=== PATIENT | female | born 1975 | race African-American/Black ===

== ENCOUNTER 2022-04-28 12:55 | Inpatient (IN) ==
[2022-04-28] MEDS ORDERED: ACETAMINOPHEN 500 MG TABLET PO STA (14:02)
[2022-04-28] MEDS ORDERED: SODIUM CHLORIDE 0.9% 1,000 ML IV STA (22:21)
[2022-04-28] MEDS ORDERED: ONDANSETRON 4 MG/2 ML VIAL IV STA (22:22)
[2022-04-28 23:44] LABS: Basophils % 0.1 % (0.0-0.8); Hematocrit 35.3 VOL% (35.7-47.0); Hemoglobin 11.4 GM/DL (12.0-16.0); Immature Granulocytes % 0.8 %; Immature Granulocytes Absolute 0.12 #; Lymphocytes # 0.8 10*3/uL (1.4-4.0); Lymphocytes % 5.2 % (21.3-54.2); Mean Corpuscular HGB Conc 32.3 GM/DL (32-36); Mean Corpuscular Volume 93.1 FL (87-102); Mean Platelet Volume 10.7 FL (9.6-12.0); Monocytes # 0.3 10*3/uL (0.11-0.8); Neutrophils % 91.9 % (38.7-73.9); Platelet Count 222 T/CUMM (130-400); Red Blood Count 3.79 MC/CUMM (3.8-5.5); Red Cell Distribution Width 12.8 % (9.3-17.3); White Blood Count 14.3 T/CUMM (4-12)
[2022-04-29 00:13] LABS: Alanine Aminotransferase 60 U/L (13-56); Albumin < 0.6 G/DL (3.4-5.0); Alkaline Phosphatase 51 U/L (45-117); Aspartate Amino Transferase 77 U/L (0-37); Bilirubin,Total < 0.39 MG/DL (0.20-1.00); Blood Urea Nitrogen 22 MG/DL (7-18); Calcium 7.7 MG/DL (8.5-10.1); Carbon Dioxide 28 MMOL/L (21-32); Chloride 99 MMOL/L (98-107); Glucose 94 MG/DL (74-106); Osmolality,Calculated 268.4 MOS/KG (273-304); Sodium 133 MMOL/L (136-145); Total Protein 5.5 G/DL (6.4-8.2)
[2022-04-29 00:36] LABS: Lymphocytes 7 % (20-55); Platelet Estimate Normal; Total Cells Counted 100
[2022-04-29] MEDS ORDERED: SODIUM CHLORIDE 0.9% 1,000 ML IV STA (00:51)
[2022-04-29] MEDS ORDERED: ACETAMINOPHEN 325 MG TABLET PO PRN (02:15)
[2022-04-29] MEDS ORDERED: cefTRIAXone 1,000 MG VIAL IV SCH (02:30)
[2022-04-29] MEDS ORDERED: cefTRIAXone 1,000 MG in SYRINGE 1 EACH IV SCH (02:30)
[2022-04-29] MEDS ORDERED: OSELTAMIVIR 30 MG CAPSULE PO SCH (02:30)
[2022-04-29] MEDS ORDERED: cefTRIAXone 1,000 MG VIAL IV ONE (03:00)
[2022-04-29] MEDS ORDERED: LACTATED RINGERS 1,000 ML IV SCH (03:30)
[2022-04-29] MEDS: DOXYCYCLINE HYCLATE INJ 100 MG in SODIUM CHLORIDE 0.9% 100 ML IV SCH ×2 (03:54→14:59)
[2022-04-29 04:01] LABS: Bacteria,Urine Occasional /HPF (Few); Bilirubin,Urine Negative (Negative); Blood, Urine Moderate mg/dL (Negative); Glucose,Urine (UA) Negative (Negative); Ketones,Urine Negative (Negative); Mucus,Urine Occasional /LPF (Occasional); Nitrite,Urine Negative (Negative); Protein,Urine 300 mg/dL (Negative); RBC,Urine 1 /HPF (0-4); Squamous Epithelial Cell,Urine Occasional /HPF (0-10); Urine Appearance Clear (Clear); Urine Color Yellow (Yellow); Urine Urobilinogen 0.2 eU/dL (<2.0); Urine pH 6.5 (4.5-8.0)
[2022-04-29 04:42] LABS: Basophils % 0.1 % (0.0-0.8); Hematocrit 33.4 VOL% (35.7-47.0); Hemoglobin 10.7 GM/DL (12.0-16.0); Immature Granulocytes % 0.9 %; Immature Granulocytes Absolute 0.12 #; Lymphocytes # 0.9 10*3/uL (1.4-4.0); Lymphocytes % 6.3 % (21.3-54.2); Mean Corpuscular Volume 93.8 FL (87-102); Mean Platelet Volume 10.8 FL (9.6-12.0); Monocytes # 0.3 10*3/uL (0.11-0.8); Monocytes % 2.4 % (1.7-12.7); Neutrophils % 90.3 % (38.7-73.9); Platelet Count 213 T/CUMM (130-400); Red Blood Count 3.56 MC/CUMM (3.8-5.5); Red Cell Distribution Width 12.9 % (9.3-17.3); White Blood Count 13.5 T/CUMM (4-12)
[2022-04-29 04:52] LABS: INR 0.9; Partial Thromboplastin Time 38.8 SECS (23.7-32.9)
[2022-04-29] MEDS: OSELTAMIVIR 6 MG/ML 60 ML/BOTTLE PO SCH ×2 (05:20→16:00)
[2022-04-29 05:26] LABS: Alanine Aminotransferase 56 U/L (13-56); Albumin < 0.6 G/DL (3.4-5.0); Alkaline Phosphatase 47 U/L (45-117); Aspartate Amino Transferase 79 U/L (0-37); Bilirubin,Total < 0.39 MG/DL (0.20-1.00); Blood Urea Nitrogen 24 MG/DL (7-18); Carbon Dioxide 27 MMOL/L (21-32); Chloride 103 MMOL/L (98-107); Glucose 97 MG/DL (74-106); Potassium 4.2 MMOL/L (3.5-5.1); Sodium 136 MMOL/L (136-145); Total Protein 4.2 G/DL (6.4-8.2)
[2022-04-29] MEDS ORDERED: INFLUENZA VIRUS VACCINE 0.5 ML SYRINGE IM ONE (05:47)
[2022-04-29] MEDS: guaiFENesin 200 MG/10 ML UDCUP PO PRN ×2 (06:09→21:15)
[2022-04-29] MEDS: LEVOTHYROXINE 50 MCG TABLET PO SCH (06:09)
[2022-04-29] MEDS: METOPROLOL SUCCINATE XL 50 MG TABLET PO SCH ×2 (08:42→21:15)
[2022-04-29] MEDS: PANTOPRAZOLE 40 MG TABLET PO SCH (08:42)
[2022-04-29] MEDS: HEPARIN 5,000 UNIT/1 ML VIAL SUBCUT SCH ×2 (08:42→16:00)
[2022-04-29] MEDS: predniSONE 20 MG TABLET PO SCH ×2 (08:42→21:15)
[2022-04-29] MEDS: ASPIRIN EC 81 MG TABLET PO SCH (08:42)
[2022-04-29] MEDS: MYCOPHENOLATE MOFETIL 250 MG CAPSULE PO SCH ×2 (08:42→21:15)
[2022-04-30] MEDS: DOXYCYCLINE HYCLATE INJ 100 MG in SODIUM CHLORIDE 0.9% 100 ML IV SCH ×2 (02:27→13:50)
[2022-04-30] MEDS: cefTRIAXone 1,000 MG in SODIUM CHLORIDE 0.9% 100 ML IV SCH (02:29)
[2022-04-30] MEDS: guaiFENesin 200 MG/10 ML UDCUP PO PRN ×3 (04:22→21:17)
[2022-04-30] MEDS: OSELTAMIVIR 6 MG/ML 60 ML/BOTTLE PO SCH ×2 (04:22→16:47)
[2022-04-30] MEDS: HEPARIN 5,000 UNIT/1 ML VIAL SUBCUT SCH ×3 (04:22→21:17)
[2022-04-30] MEDS: LEVOTHYROXINE 50 MCG TABLET PO SCH (05:29)
[2022-04-30 05:38] LABS: Basophils % 0.1 % (0.0-0.8); Hematocrit 32.1 VOL% (35.7-47.0); Hemoglobin 10.3 GM/DL (12.0-16.0); Immature Granulocytes % 1.7 %; Immature Granulocytes Absolute 0.29 #; Lymphocytes # 1.5 10*3/uL (1.4-4.0); Lymphocytes % 8.8 % (21.3-54.2); Mean Corpuscular HGB Conc 32.1 GM/DL (32-36); Mean Corpuscular Volume 94.1 FL (87-102); Mean Platelet Volume 10.6 FL (9.6-12.0); Monocytes # 0.6 10*3/uL (0.11-0.8); Monocytes % 3.2 % (1.7-12.7); Neutrophils % 86.2 % (38.7-73.9); Platelet Count 268 T/CUMM (130-400); Red Blood Count 3.41 MC/CUMM (3.8-5.5); White Blood Count 17.1 T/CUMM (4-12)
[2022-04-30 06:08] LABS: Alanine Aminotransferase 42 U/L (13-56); Albumin < 0.6 G/DL (3.4-5.0); Alkaline Phosphatase 50 U/L (45-117); Aspartate Amino Transferase 50 U/L (0-37); Bilirubin,Total < 0.39 MG/DL (0.20-1.00); Blood Urea Nitrogen 30 MG/DL (7-18); Calcium 7.8 MG/DL (8.5-10.1); Carbon Dioxide 27 MMOL/L (21-32); Chloride 105 MMOL/L (98-107); Glucose 117 MG/DL (74-106); Osmolality,Calculated 279.8 MOS/KG (273-304); Potassium 3.9 MMOL/L (3.5-5.1); Sodium 137 MMOL/L (136-145); Total Protein 5.4 G/DL (6.4-8.2)
[2022-04-30] MEDS: ASPIRIN EC 81 MG TABLET PO SCH (08:38)
[2022-04-30] MEDS: predniSONE 20 MG TABLET PO SCH ×2 (08:38→21:17)
[2022-04-30] MEDS: PANTOPRAZOLE 40 MG TABLET PO SCH (08:38)
[2022-04-30] MEDS: MYCOPHENOLATE MOFETIL 250 MG CAPSULE PO SCH ×2 (08:38→21:16)
[2022-04-30] MEDS: METOPROLOL SUCCINATE XL 50 MG TABLET PO SCH ×2 (08:39→21:17)
[2022-04-30] MEDS ORDERED: LACTATED RINGERS 1,000 ML IV SCH (10:00)
[2022-04-30] MEDS: ALBUTEROL/IPRATROPIUM 3 ML NEB RESP TX SCH (20:14)
[2022-05-01] MEDS: ALBUTEROL/IPRATROPIUM 3 ML NEB RESP TX SCH ×4 (00:10→18:54)
[2022-05-01] MEDS: DOXYCYCLINE HYCLATE INJ 100 MG in SODIUM CHLORIDE 0.9% 100 ML IV SCH ×2 (03:18→14:21)
[2022-05-01] MEDS: cefTRIAXone 1,000 MG in SODIUM CHLORIDE 0.9% 100 ML IV SCH (03:19)
[2022-05-01 05:35] LABS: Basophils % 0.1 % (0.0-0.8); Hematocrit 32.4 VOL% (35.7-47.0); Hemoglobin 10.5 GM/DL (12.0-16.0); Immature Granulocytes Absolute 0.18 #; Lymphocytes # 1.4 10*3/uL (1.4-4.0); Lymphocytes % 7.9 % (21.3-54.2); Mean Corpuscular HGB Conc 32.4 GM/DL (32-36); Mean Corpuscular Volume 94.2 FL (87-102); Monocytes # 0.5 10*3/uL (0.11-0.8); Platelet Count 324 T/CUMM (130-400); Red Blood Count 3.44 MC/CUMM (3.8-5.5); Red Cell Distribution Width 12.8 % (9.3-17.3); White Blood Count 17.4 T/CUMM (4-12)
[2022-05-01] MEDS: OSELTAMIVIR 6 MG/ML 60 ML/BOTTLE PO SCH ×2 (05:42→16:30)
[2022-05-01] MEDS: HEPARIN 5,000 UNIT/1 ML VIAL SUBCUT SCH ×3 (05:42→20:33)
[2022-05-01] MEDS: LEVOTHYROXINE 50 MCG TABLET PO SCH (05:42)
[2022-05-01 06:41] LABS: Alanine Aminotransferase 39 U/L (13-56); Albumin 0.6 G/DL (3.4-5.0); Alkaline Phosphatase 59 U/L (45-117); Aspartate Amino Transferase 39 U/L (0-37); Bilirubin,Total < 0.39 MG/DL (0.20-1.00); Blood Urea Nitrogen 33 MG/DL (7-18); Calcium 8.2 MG/DL (8.5-10.1); Carbon Dioxide 24 MMOL/L (21-32); Chloride 105 MMOL/L (98-107); Glucose 103 MG/DL (74-106); Osmolality,Calculated 279.8 MOS/KG (273-304); Potassium 4.3 MMOL/L (3.5-5.1); Sodium 137 MMOL/L (136-145); Total Protein 5.4 G/DL (6.4-8.2)
[2022-05-01] MEDS: ASPIRIN EC 81 MG TABLET PO SCH (09:11)
[2022-05-01] MEDS: MYCOPHENOLATE MOFETIL 250 MG CAPSULE PO SCH ×2 (09:11→20:33)
[2022-05-01] MEDS: METOPROLOL SUCCINATE XL 50 MG TABLET PO SCH ×2 (09:11→20:33)
[2022-05-01] MEDS: PANTOPRAZOLE 40 MG TABLET PO SCH (09:11)
[2022-05-01] MEDS: predniSONE 20 MG TABLET PO SCH ×2 (09:11→20:33)
[2022-05-02] MEDS: ALBUTEROL/IPRATROPIUM 3 ML NEB RESP TX SCH ×3 (00:01→12:46)
[2022-05-02] MEDS: DOXYCYCLINE HYCLATE INJ 100 MG in SODIUM CHLORIDE 0.9% 100 ML IV SCH ×2 (02:31→14:50)
[2022-05-02] MEDS: cefTRIAXone 1,000 MG in SODIUM CHLORIDE 0.9% 100 ML IV SCH (03:00)
[2022-05-02] MEDS: HEPARIN 5,000 UNIT/1 ML VIAL SUBCUT SCH ×2 (05:25→14:54)
[2022-05-02] MEDS: OSELTAMIVIR 6 MG/ML 60 ML/BOTTLE PO SCH (05:25)
[2022-05-02] MEDS: LEVOTHYROXINE 50 MCG TABLET PO SCH (05:47)
[2022-05-02] MEDS: ASPIRIN EC 81 MG TABLET PO SCH (09:54)
[2022-05-02] MEDS: PANTOPRAZOLE 40 MG TABLET PO SCH (09:54)
[2022-05-02] MEDS: MYCOPHENOLATE MOFETIL 250 MG CAPSULE PO SCH (09:54)
[2022-05-02] MEDS: METOPROLOL SUCCINATE XL 50 MG TABLET PO SCH (09:54)
[2022-05-02] MEDS: predniSONE 20 MG TABLET PO SCH (09:54)
[2022-05-02 13:30] LABS: Calcium 8.5 MG/DL (8.5-10.1); Osmolality,Calculated 278.8 MOS/KG (273-304); Potassium 3.6 MMOL/L (3.5-5.1)
[2022-05-02 16:03] VITALS: BP 150/84
== END 2022-05-02 17:11 | disposition home or self-care (01) | DRG 194 ==
LOC: N.ED 12:55 → N.EDINP 12:55 → SUATTDRO 04-29 02:13 → N.3E 04-29 05:30
PROVIDERS: ADMIT Internal Medicine; ATTEND Family Medicine